=== PATIENT | female | born 1985 | race Caucasian/White ===

== ENCOUNTER 2022-12-12 04:21 | Emergency (ER) | payer MEDICAID ==
[~2022-12-12] VITALS: Ht 152.4 cm; Wt 90.7 kg
[2022-12-12 04:23] VITALS: BP 148/92
--- NOTE | 2022-12-12 04:33 | NUR ---
TO BED 12 FOLLOWING TRIAGE
--- NOTE | 2022-12-12 04:54 | NUR ---
Dr. Granger examining patient.
[2022-12-12] MEDS ORDERED: KETOROLAC 30 MG/ML VIAL IM ONE (04:55)
[2022-12-12] MEDS ORDERED: IBUP-2213 PO (04:56)
--- NOTE | 2022-12-12 04:56 | NUR ---
Patient received on bed lying comfortably and awake. Alert and oriented x4. No acute distress. Complained of 10/10 on bilateral ankles. No swelling on the ankles. Respirations even and unlabored.
[2022-12-12 05:55] VITALS: BP 140/97
--- NOTE | 2022-12-12 05:57 | NUR ---
Patient discharged with v/s stable. Written and verbal after care instructions given and explained. Patient alert, oriented and verbalized understanding of instructions. Wheel Chair Assisted with to car. All questions addressed prior to discharge. ID band removed. Patient advised to follow up with PMD. Rx of Ibuprofen given. Patient educated on indication of medication including possible reaction and side effects. Opportunity to ask questions provided and answered.
== END 2022-12-12 05:57 | disposition home or self-care (01) ==
LOC: MED 04:21
DX: M79.671 Pain in right foot (principal); M79.672 Pain in left foot; J45.909 Unspecified asthma, uncomplicated; I10 Essential (primary) hypertension; Z79.1 Long term (current) use of non-steroidal anti-inflammatories (NSAID); Z91.040 Latex allergy status
CPT/HCPCS: 96372; 99283; J1885